=== PATIENT | male | born 1940 | race Caucasian/White ===

== ENCOUNTER → 2019-09-17 | Outpatient (CLI) | payer MEDICARE, OTHER ==
--- NOTE | 2019-09-17 12:46 | RADIOLOGY REPORT (SQ) ---
EXAM DESCRIPTION: L SPINE FLEX/EXT ONLY IMAGES COMPLETED DATE/TIME: 09/17/2019 8:10 am REASON FOR STUDY: S/P NON INSTRUMENTED FUSION COMPARISON: None. NUMBER OF VIEWS: Two view. TECHNIQUE: Lateral views were obtained in flexion and extension. LIMITATIONS: None. FINDINGS: MINERALIZATION: Normal. SEGMENTATION: Normal. No transitional anatomy. ALIGNMENT: Normal. FLEXION/EXTENSION: No instability. VERTEBRAE: Maintained height. No fracture or worrisome bone lesion. DISCS: Disc spaces are narrowed from L2-L5. Marginal osteophytes are present. POSTERIOR ELEMENTS: Hypertrophic facet changes are present from L3-S1. HARDWARE: None in the spine. OTHER: No other significant finding. IMPRESSION: Degenerative disc disease. Spondylosis. Facet arthropathy. No instability on flexion/ extension. TECHNICAL DOCUMENTATION: JOB ID: [id number] [employer]- All Rights Reserved Reading location - IP/workstation name: [email or web address]
--- NOTE | 2019-09-17 16:03 | RADIOLOGY REPORT (SQ) ---
EXAM DESCRIPTION: L SPINE 2 VIEWS IMAGES COMPLETED DATE/TIME: 09/17/2019 8:10 am REASON FOR STUDY: S/P NON-INSTRUMENTAL FUSION COMPARISON: None. NUMBER OF VIEWS: Two views. TECHNIQUE: AP, lateral, and inferior coned down lateral views of the lumbar spine. LIMITATIONS: None. FINDINGS: Status post posterior decompression L3-4 and L4- 5. Multilevel spondylosis. No acute com pression fracture. Calcified aorta. IMPRESSION: SPONDYLOSIS WITHOUT BONE LESION OR FRACTURE. TECHNICAL DOCUMENTATION: JOB ID: [id number] 2010 [employer]- All Rights Reserved Reading location - IP/workstation name: [email or web address]
== END ==
LOC: RAD 07:26
PROVIDERS: ATTEND Nurse Practitioner
DX: M51.37 Other intervertebral disc degeneration, lumbosacral region (principal); M47.816 Spondylosis without myelopathy or radiculopathy, lumbar region; M79.605 Pain in left leg
CPT/HCPCS: 72100; 72120

== ENCOUNTER → 2019-09-30 | Outpatient (CLI) | payer MEDICARE, OTHER ==
--- NOTE | 2019-09-30 08:32 | RADIOLOGY REPORT (SQ) ---
EXAM DESCRIPTION: MRI LUMBAR SPINE COMBO IMAGES COMPLETED DATE/TIME: 09/30/2019 8:15 am REASON FOR STUDY: LEFT LEG PAIN (M79.605) M79.605 PAIN IN LEFT LEG COMPARISON: None. TECHNIQUE: Sagittal and Axial imaging includes T1, T1 post gadolinium, T2, STIR and gradient echo se quences. Coronal T2/HASTE imaging. CONTRAST TYPE AND DOSE: 15 mL Prohance. RENAL FUNCTION: Not indicated. ACR Type II contrast agent associated with few, if any, unconfounded cases of NSF LIMITATIONS: None. FINDINGS: VISUALIZED UPPER ABDOMEN: Limited evaluation. No acute or suspicious findings suggested. SEGMENTATION: No transitional anatomy. The lowest well-developed disc space is labeled L5-S1. ALIGNMENT: Anatomic. VERTEBRAE: Intact. No fractures. BONE MARROW: Minimal endplate reactive edema along the L1-2 and L2-3 degenerated discs. DISC SIGNAL: Multilevel loss in signal and height. Relative sparing of the L5-S1 disc. POSTERIOR ELEMENTS: L3 and L4 dorsal decompressions. Facet arthropathy otherwise. No pars defect. HARDWARE: None in the spine. CORD AND CONUS: Normal in size and signal intensity. Conus at the appropriate level. SOFT TISSUES: No aortic aneurysm seen. No bulky retroperitoneal adenopathy or mass. No paraspinal mas s or fluid. L1-L2: Mild disc and facet disease with slight foraminal narrowing. L2-L3: Broad posterior bulge flattens the ventral thecal sac. Moderate central narrowing results. R elatively mild bilateral foraminal narrowing. L3-L4: Broad disc bulge flattens the ventral thecal sac. No significant central stenosis although th ere is some lateral recess encroachment. Up to moderate foraminal stenosis. L4-L5: Mild central protrusion. Mild lateral recess encroachment. Facet overgrowth. Moderate bilat eral foraminal stenosis. L5-S1: Posterior ligament thickening and facet overgrowth with lateral recess encroachment, fairly mi ld central stenosis. Bilateral moderate foraminal narrowing. LOWER THORACIC: Incompletely imaged. No stenosis seen. SACRUM: Visualized upper sacrum intact. ENHANCEMENT: No abnormal enhancement. OTHER: No other significant findings. IMPRESSION: 1. Lumbar spondylosis. Up to moderate central narrowing at L2-3. TECHNICAL DOCUMENTATION: JOB ID: [id number] 2010 [employer]- All Rights Reserved Reading location - IP/workstation name: [email or web address]
== END ==
LOC: RAD 07:13
PROVIDERS: ATTEND Nurse Practitioner
DX: M79.605 Pain in left leg (principal)
CPT/HCPCS: 82565; 72158; A9576